=== PATIENT | male | born 1990 | race Caucasian/White ===

== ENCOUNTER → 2020-12-12 | Day surgery (SDC) | payer OTHER ==
[~2020-12-12] VITALS: Ht 185.4 cm; Wt 97.5 kg
[~2020-12-12] MED LIST: OMEPRAZOLE 20MG20 MG PO; SUBOXONE 8 MG-1 EACH PO; [UNRECOGNIZED DRUG - OTHER] PO
[2020-12-12 12:19] LABS: BASOPHIL 0.9 % (0-2); EOSINOPHIL 3.3 % (0-5); HCT 44.1 % (42.0-52.0); HGB 14.9 g/dl (13.2-18.0); MCH 30.5 pg (25.0-31.0); MCHC 33.8 g/dL (32.0-36.0); MCV 90.4 fL (78.0-100.0); MONOCYTE 6.8 % (0-12); MPV 10.3 fL (6.0-9.5); NEUTROPHIL 44.9 % (41-80); NRBC 0; PLT 214 K/uL (150-400); RBC 4.88 M/uL (4.70-6.00); RDW 11.8 % (11.5-14.0); WBC 7.5 K/uL (4.0-10.5)
[2020-12-12 12:22] LABS: INR 0.98 (0.9-1.2); PROTHROMBIN TIME 12.4 SECONDS (11.8-13.4)
[2020-12-12 12:23] LABS: PTT 30.6 SECONDS (24.4-34.7)
[2020-12-12 12:37] LABS: BILIRUBIN - TOTAL 0.6 mg/dL (0.2-1.0); BUN/CREAT RATIO (CALC) 14.8 RATIO; CREATININE 0.88 mg/dL (0.67-1.17); GLOBULIN (CALCULATION) 3.7 g/dL; POTASSIUM 4.5 mmol/L (3.5-5.1); TOTAL PROTEIN 7.7 g/dL (6.4-8.2)
== END | disposition home or self-care (01) ==
LOC: FAS 10:40
PROVIDERS: Oral & Maxillofacial Surgery
DX: K02.9 Dental caries, unspecified (principal); F11.20 Opioid dependence, uncomplicated; B19.20 Unspecified viral hepatitis C without hepatic coma; G40.909 Epilepsy, unspecified, not intractable, without status epilepticus; F32.9 Major depressive disorder, single episode, unspecified; F41.9 Anxiety disorder, unspecified; K21.9 Gastro-esophageal reflux disease without esophagitis; Z87.891 Personal history of nicotine dependence; Z79.899 Other long term (current) drug therapy
CPT/HCPCS: D7140; D7210; 36415; 80053; 85025; 85610; 85730; J1100; J1885; J2250; J2405; J2704; J7120